=== PATIENT | female | born 1980 | race Caucasian/White ===

== ENCOUNTER 2024-06-23 11:16 | Emergency (ER) | payer BC, SELFPAY ==
[2024-06-23 11:17] VITALS: BP 224/126
[2024-06-23 12:48] VITALS: BP 208/109
[2024-06-23 13:09] VITALS: BP 170/87
--- NOTE | 2024-06-23 13:15 | ED.GENMED ---
History of Present Illness
General
Chief Complaint: Blood Pressure Problem
Source: patient
Time Seen by Provider: 06/23/24 13:08
History of Present Illness
History of Present Illness:
43yoF with no known medical problems (has not seen a PCP in many years) presenting for evaluation of elevated blood pressure readings. Patient started to feel off and shaky yesterday. She decided to check her blood pressure which was elevated at
170s/80s. She continued to not feel well today and blood pressure was 190s/90s so she decided to come to the ED. Patient has a blood pressure cuff at home and periodically checks her blood pressure every few months. Her blood pressures are normally
120s/80s. She denies any chest pain, shortness of breath, headache.
Phy Exam
General Physical Exam
General Presentation: well appearing and no apparent distress
General age: appears stated age
General Skin: warm and dry
General Habitus: normal and obese
General Mental: alert
ENT Exam
ENT Exam: normocephalic
Cardiovascular Exam
Cardiovascular Exam: regular rate/rhythm and systolic murmur
Pulmonary Exam
Pulmonary Exam: lungs clear, no respiratory distress, no rales, no crackles, no rhonchi and no wheezing
[place] Coma Scale
Eye Opening: Spontaneous
Verbal Response: Oriented
Motor Response: Obeys Commands
GCS Total Score: 15
Skin Exam
Skin Exam: normal color and warm/dry
Psychiatric Exam
Psychiatric Exam: normal mood/affect
Course
Orders/Labs/Results
Orders:
Orders
06/23/24 11:20
Electrocardiogram (*1) Urgent
Reason for Study: Hypertension, Benign
06/23/24 11:21
EKG- Treatment ONCE
06/23/24 13:12
CBC/With Diff [Complete Blood Count/With Diff] Urgent
Comprehensive Metabolic Panel Urgent
06/23/24 13:15
Troponin I Urgent
06/23/24 16:00
Amlodipine [Norvasc] 5 mg PO DAILY
Abnormal Lab Results
06/23/24
13:12
Abs Immat Gran (auto) 0.1 H 10^3/uL
(0-0.05)
Absolute Neuts (auto) 8.1 H 10^3/uL
(1.4-6.5)
Immature Gran % 0.6 H %
(0-0.5)
Neutrophils % 75.3 H %
(42.2-75.2)
Lymphocytes % 18.7 L %
(20.5-51.1)
Glucose 107 H mg/dl
(70-99)
AST 57 H U/L
(14-36)
ALT 60 H U/L
(0-35)
06/23/24 13:12
06/23/24 13:12
Vital Signs
Initial and Last Documented VS:
Initial Vital Signs
Temp Pulse Resp BP Pulse Ox
98.2 F 117 18 224/126 97
06/23/24 11:17 06/23/24 11:17 06/23/24 11:17 06/23/24 11:17 06/23/24 11:17
Last Documented Vital Signs
Temp Pulse Resp BP Pulse Ox
98.3 F 84 18 146/67 96
06/23/24 15:43 06/23/24 15:37 06/23/24 15:17 06/23/24 15:37 06/23/24 15:17
MDM/Problems Addressed
Differential Diagnosis Includes:
43yoF here with elevated blood pressures x 1 day. C/o feeling shaky and 'off.' No chest pain or headache. Blood pressure 224/126 in triage. BP 170/87 on initial exam. Remainder of vitals are stable. She is well appearing in no distress. Differential
diagnosis includes but is not limited to: hypertension, hypertensive urgency, hypertensive emergency
Initial ED plan: Check cardiac labs and EKG.
*EKG
Interpreted by ED Provider?: Yes
EKG Intrepretation Date: 06/23/24
Heart Rate: 95
Rate: normal
Rhythm: sinus
[place]: normal axis
Interval: normal interval
QRS Pattern: normal QRS
Ischemia: no ischemia
*Critical Care Note
Total Time (30-74mins, 75-104mins- exclusive of procedures): Not Applicable
Update Note
Update Note:
Labs reveal a mild transaminitis. Patient has no abdominal complaints. Renal function normal. EKG shows NSR without ischemic changes and troponin WNL. Blood pressure improved to 146/67 without intervention. No evidence of end organ dysfunction. No
indication for hospitalization. Patient started on 5mg amlodipine daily. She was advised to f/u with a PCP. ED return precautions discussed. She expressed understanding and is agreeable to plan. She was discharged in stable condition.
ED Attending Note
-
Portions of this chart may have been created with voice recognition software.� Occasional wrong word or��sound alike� substitutions may have occurred due to the inherent limitations of voice recognition software.
Discharge Plan
Departure
Patient Disposition: Home (Routine Discharge)
Date of Disposition: 06/23/24
Time of Disposition: 15:19
Patient with high blood pressure during this ER visit?: Yes
Discharge Problem:
Hypertension
Prescriptions:
New
amlodipine 5 mg tablet
5 mg PO DAILY Qty: 30 0RF
Referrals:
Staci Muse MD [Active] -
NONE,* [Family Provider] -
Activity Restrictions/Additional Instructions:
Take amlodipine as prescribed.
Please follow-up with a family doctor. Return to the ER with any worsening symptoms, chest pain, stroke symptoms.
Interventions
Interventions:
*Risk Screen - Suicide Last Done: 06/23/24 11:18
*General Assessment Last Done: 06/23/24 11:18
*Neglect/Abuse Screening Last Done: 06/23/24 11:18
ED- Fall Risk Assessment Last Done: 06/23/24 13:10
*ED COVID-19 Vaccine History Last Done: 06/23/24 13:26
*Nursing Disposition Last Done: 06/23/24 15:43
ED- Cardiac Assessment Last Done: 06/23/24 13:12
ED- Neurological Assessment Last Done: 06/23/24 13:12
ED- Pulmonary Assessment Last Done: 06/23/24 13:12
Discharge Date and Time
Discharge Date/Time: 06/23/24 15:47
Print Language: ALBANIAN
[2024-06-23 13:41] LABS: % Basophils 0.4 % (0-2); % Eosinophils 0.4 % (0-6); % Immature Granulocytes 0.6 % (0-0.5); % Lymphocytes 18.7 % (20.5-51.1); % Monocytes 4.6 % (1.7-9.3); % Neutrophils 75.3 % (42.2-75.2); Absolute Immature Granulocytes 0.1 10^3/uL (0-0.05); Absolute Monocytes 0.5 10^3/uL (0.1-0.6); Absolute Neutrophils 8.1 10^3/uL (1.4-6.5); Hematocrit 38.4 % (37.0-47.0); Mean Corp Hgb Conc. 33.9 g/dL (33.0-37.0); Mean Corpuscular Hgb 27.8 pg (27.0-31.0); Mean Corpuscular Volume 82.2 fL (81.0-99.0); Mean Platelet Volume 9.8 fL (7.4-10.4); Nucleated Red Blood Cells % 0 %; Platelet Count 334 10^3/uL (130-400); Red Blood Cell Count 4.67 10^6/uL (4.20-5.40); Red Cell Dist. Width 13.5 % (11.5-14.5); White Blood Cell Count 10.7 10^3/uL (4.8-10.8)
[2024-06-23 13:54] LABS: ALT (SGPT) 60 U/L (0-35); AST (SGOT) 57 U/L (14-36); Albumin 4.7 g/dl (3.5-5.0); Alkaline Phosphatase 111 U/L (38-126); Blood Urea Nitrogen 9 mg/dl (7-17); Calcium 9.9 mg/dl (8.4-10.2); Carbon Dioxide 24 mmol/L (22-30); Chloride 105 mmol/L (98-107); Glucose 107 mg/dl (70-99); Potassium 4.6 mmol/L (3.5-5.1); Sodium 142 mmol/L (135-145); Total Bilirubin 0.5 mg/dl (0.2-1.3); Total Protein 7.4 g/dl (6.3-8.2); eGFR > 60.00
[2024-06-23 14:00] VITALS: BP 166/82
[2024-06-23 14:05] LABS: Troponin I < 0.012 ng/ml
[2024-06-23 15:00] VITALS: BP 154/77
[2024-06-23 15:36] VITALS: BP 146/67
[2024-06-23] MEDS: NORVASC 5 MG PO (15:37)
== END 2024-06-23 15:47 | disposition home or self-care (01) ==
LOC: EMR 11:16
PROVIDERS: Emergency Medicine; Physician Assistant; EMERGENCY PHYSICIAN Emergency Medicine
DX: I10 Essential (primary) hypertension (principal)
CPT/HCPCS: 99284; 80053; 84484; 85025; 93005

== ENCOUNTER → 2024-10-23 11:04 | Outpatient (REF) | payer BC, SELFPAY | LOC: HWRAD 11:04 | PROVIDERS: ATTENDING PHYSICIAN Nurse Practitioner Family | DX: M15.9 Polyosteoarthritis, unspecified (principal) | CPT/HCPCS: 73130 ==